=== PATIENT | female | born 1935 | race Two or more races ===

== ENCOUNTER 2017-06-07 12:53 | Emergency (ER) | payer MEDICARE ==
[2017-06-07 12:58] VITALS: TEMP 97.5; BMI 35.2
--- NOTE | 2017-06-07 13:09 | PDOC ---
History of Present Illness - General Stated Complaint: RT ARM/HAND SWELLING Time Seen by Provider: 06/07/17 13:06 History Source: Patient Exam Limitations: No Limitations - History of Present Illness Initial Comments: CHIEF COMPLAINT: 81 y/o afebrile female with PMH breast CA (right mastectomy) c /o atraumatic right hand and wrist pain x 3 days. HISTORY OF PRESENT ILLNESS: The patient states Thursday morning she started having some discomfort in the right fingers and wrist. Yesterday it got much worse and became swollen. She states she can now hardly move her hand and fingers. She denies fever, chills, n/v/d, trauma to affected arm/fingers. She took tylenol for pain only because Motrin upsets her stomach. Vital signs on arrival are notable for BP of 192/88. REVIEW OF SYSTEMS: GENERAL/CONSTITUTIONAL: No fever/chills. No weakness. No weight change. HEAD, EYES, EARS, NOSE AND THROAT: No change in vision. No ear pain or discharge. No sore throat. MUSCULOSKELETAL: +right hand and wrist pain. No neck or back pain. SKIN: No rash or easy bruising. NEUROLOGIC: No headache, vertigo, loss of consciousness, or loss of sensation. PHYSICAL EXAM: GENERAL: The patient is awake, alert, and fully oriented, in no acute distress. HEAD: Normal with no signs of trauma. EXTREMITIES: Moderate edema to distal right forearm at wrist joint that is very TTP. Swelling to MCP joints of right hand that are very TTP. 4th and 5th MCP joints with slight erythema. No streaking. No open wounds. Pt can flex and extend wrist and all fingers. Sensory intact in all fingers. NEUROLOGICAL: Normal speech, normal gait. CN II-XII grossly intact. SKIN: Warm, dry, normal turgor, no rashes or lesions noted. Past History - Past Medical History Allergies/Adverse Reactions: Allergies Allergy/AdvReac Type Severity Reaction Status Date / Time chocolate flavor Allergy Mild Itching Verified 06/07/17 12:59 No Known Drug Allergies Allergy Verified 06/07/17 12:59 Home Medications: Ambulatory Orders Indomethacin 50 mg PO TID #15 capsule 06/07/17 Methylprednisolone [Medrol Dose Nigel] 4 mg PO ASDIR #21 tablet 06/07/17 Anemia: No Asthma: No Cancer: Yes (right breast) Cardiac Disorders: No CVA: No COPD: No CHF: No Dementia: No Diabetes: No GI Disorders: No Disorders: No HTN: No Hypercholesterolemia: No Liver Disease: No Suicide Attempt (Hx): No Seizures: No Thyroid Disease: No - Surgical History Abdominal Surgery: No Appendectomy: Yes Cardiac Surgery: No Cholecystectomy: No Lung Surgery: No Neurologic Surgery: No Orthopedic Surgery: No - Psycho/Social/Smoking Cessation Hx Suicidal Ideation: No Smoking History: Never smoked Have you smoked in the past 12 months: No Hx Alcohol Use: No Drug/Substance Use Hx: No Substance Use Type: None Hx Substance Use Treatment: No *Physical Exam - Vital Signs Last Vital Signs Temp Pulse Resp BP Pulse Ox 97.5 F L 67 20 192/88 98 06/07/17 12:55 06/07/17 12:55 06/07/17 12:55 06/07/17 12:55 06/07/17 12:55 Medical Decision Making - Medical Decision Making A/P: 81 y/o female with atraumatic swelling and pain to right wrist and fingers. Possible gout? Plan is as follows: 1. xray right wrist and fingers Xray right wrist and fingers IMPRESSION: No gross fracture, subluxation or gross bone destruction Gave the patient and her daughter the results. The patient states her pain is much better after Motrin. Will treat for acute gout. Will send rx for medrol dose pack and indomethacin. Instructed the patient to take the medrol dose pack first and take the indomethacin if the steroids don't provide relief within a few days. INstructed her to f/u with her doctor this week and return to the ER with any worsening or concerning symptoms. The patient verbalizes understanding of all instructions, has no further questions and is awaiting discharge. *DC/Admit/Observation/Transfer Diagnosis at time of Disposition: Gout attack Qualifiers: Gout site: wrist Gout etiology: unspecified cause Laterality: right Qualified Code(s): M10.9 - Gout, unspecified - Discharge Dispostion Disposition: HOME Condition at time of disposition: Good - Prescriptions Prescriptions: Indomethacin 50 mg PO TID #15 capsule Methylprednisolone [Medrol Dose Nigel] 4 mg PO ASDIR #21 tablet - Referrals Referrals: Feliciano Jones MD [Primary Care Provider] - Call tomorrow - Patient Instructions Printed Discharge Instructions: DI for Gout Additional Instructions: Discharge Instructions: -2 prescriptions were sent to your pharmacy; start taking the Medrol dose pack tomorrow. If no improvement in 3 days, start taking the Indomethacin. -Call your doctor tomorrow to schedule a follow up appointment for this week -Return to the ER immediately with any worsening or concerning symptoms.
[2017-06-07] MEDS ORDERED: IBUPROFEN 600 MG TABLET (FP) PO ONE (13:30)
[2017-06-07 14:20] VITALS: BP 149/76; PULSE 69
== END 2017-06-07 14:45 | disposition home or self-care (01) ==
LOC: JERFT 12:53
DX: M79.641 Pain in right hand (principal); M10.9 Gout, unspecified; Z85.3 Personal history of malignant neoplasm of breast
CPT/HCPCS: 73110-TC-RT; 73130-TC-RT; 99281-25

== ENCOUNTER 2018-12-01 12:13 | Emergency (ER) | payer MEDICARE, OTHER ==
[2018-12-01 12:23] VITALS: TEMP 98.5; BMI 35.4
[2018-12-01 15:25] LABS: URINE APPEARANCE CLEAR; URINE BILIRUBIN NEGATIVE (<2.0 mg/dL); URINE COLOR LTYELLOW; URINE GLUCOSE (UA) NEGATIVE (NEGATIVE); URINE KETONE NEGATIVE (NEGATIVE); URINE LEUK ESTERASE NEGATIVE (NEGATIVE); URINE NITRITE NEGATIVE (NEGATIVE); URINE PROTEIN NEGATIVE (NEGATIVE); URINE UROBILINOGEN NEGATIVE mg/dL (0.2-1.0)
[2018-12-01 15:52] LABS: BASO % 1.2 % (0-2.0); EOS % 3.3 % (0-4.5); HEMATOCRIT 45.9 % (32.4-45.2); HEMOGLOBIN 14.4 GM/dL (10.7-15.3); LYMPH % 25.7 % (8-40); MCHC 31.4 g/dl (32.0-36.0); MEAN CELL VOLUME 83.1 fl (80-96); MEAN PLT VOLUME 8.9 fl (7.5-11.1); MONO % 7.7 % (3.8-10.2); NEUT % 62.1 % (42.8-82.8); PLATELET COUNT 210 K/MM3 (134-434); RBC 5.53 M/mm3 (3.60-5.2); RDW 14.9 % (11.6-15.6); WHITE BLOOD COUNT 7.5 K/mm3 (4.0-10.0)
[2018-12-01 16:04] LABS: ALBUMIN 3.9 g/dl (3.4-5.0); ALK PHOS 103 U/L (45-117); ANION GAP 6 MMOL/L (8-16); BILIRUBIN,TOTAL 0.6 mg/dL (0.2-1); BLOOD UREA NITROGEN 10 mg/dL (7-18); CALCIUM 9.4 mg/dL (8.5-10.1); CHLORIDE 108 mmol/L (98-107); CO2 27 mmol/L (21-32); CREATININE 0.8 mg/dL (0.55-1.3); GLUCOSE,RANDOM 98 mg/dL (74-106); POTASSIUM 4.6 mmol/L (3.5-5.1); SGOT/AST 32 U/L (15-37); SGPT/ALT 20 U/L (13-61); SODIUM 141 mmol/L (136-145); TOT PROT 7.4 g/dl (6.4-8.2)
--- NOTE | 2018-12-01 16:36 | PDOC ---
History of Present Illness - General Chief Complaint: Pain, Acute Stated Complaint: PAIN, ACUTE, LEFT FLANK TO ABD AREA Time Seen by Provider: 12/01/18 14:40 History Source: Patient Exam Limitations: No Limitations - History of Present Illness Travel History: No Initial Comments: 12/01/18 16:29 82-year-old female presents to ED with complaints of left lower quadrant pain she describes as sharp and intermittent since yesterday. Patient also complaining of mild dysuria without fever and chills. Patient also denies abdominal distention or change in bowels. Patient denies GI disorders, renal colic, or back pain. Timing/Duration: reports: getting worse, intermittent Quality: reports: moderate, cramping, sharpness Abdominal Pain Onset Location: reports: LLQ, flank Pain Radiation: reports: flank Activities at Onset: reports: none Aggravating Factors: improves with: None Alleviating Factors: improves with: None Past History - Travel Traveled outside of the country in the last 30 days: No Close contact w/someone who was outside of country & ill: No - Past Medical History Allergies/Adverse Reactions: Allergies Allergy/AdvReac Type Severity Reaction Status Date / Time No Known Drug Allergies Allergy Verified 12/01/18 12:23 Home Medications: Ambulatory Orders Indomethacin 50 mg PO TID #15 capsule 06/07/17 Methylprednisolone [Medrol Dose Nigel] 4 mg PO ASDIR #21 tablet 06/07/17 Anemia: No Asthma: No Cancer: Yes (right breast) Cardiac Disorders: No CVA: No COPD: No CHF: No Dementia: No Diabetes: No GI Disorders: No Disorders: No HTN: No Hypercholesterolemia: No Liver Disease: No Seizures: No Thyroid Disease: No - Surgical History Abdominal Surgery: No Appendectomy: Yes Cardiac Surgery: No Cholecystectomy: No Lung Surgery: No Neurologic Surgery: No Orthopedic Surgery: No - Suicide/Smoking/Psychosocial Hx Smoking History: Never smoked Have you smoked in the past 12 months: No Information on smoking cessation initiated: No Hx Alcohol Use: No Drug/Substance Use Hx: No Substance Use Type: None Hx Substance Use Treatment: No Patient Lives Alone: No Review of Systems - Review of Systems Able to Perform ROS?: Yes Constitutional: No: Symptoms Reported HEENTM: No: Symptoms Reported Respiratory: No: Symptoms reported Cardiac (ROS): No: Symptoms Reported ABD/GI: Yes: Abdominal cramping : Yes: Frequency, Flank Pain Musculoskeletal: No: Back Pain Integumentary: No: Symptoms Reported Neurological: No: Symptoms reported *Physical Exam - Vital Signs Last Vital Signs Temp Pulse Resp BP Pulse Ox 98.5 F 74 17 156/62 99 12/01/18 12:21 12/01/18 12:21 12/01/18 12:21 12/01/18 12:21 12/01/18 12:21 - Physical Exam General Appearance: Yes: Nourished, Appropriately Dressed. No: Apparent Distress HEENT: positive: EOMI, MADHAVI, TMs Normal, Pharynx Normal. negative: Pale Conjunctivae Neck: positive: Supple Respiratory/Chest: positive: Lungs Clear, Normal Breath Sounds. negative: Respiratory Distress, Accessory Muscle Use Cardiovascular: positive: Regular Rhythm, Regular Rate. negative: Murmur Gastrointestinal/Abdominal: positive: Soft, Tenderness (left flank/ left lower quadrant) Musculoskeletal: negative: CVA Tenderness Integumentary: positive: Normal Color, Warm, Moist Neurologic: positive: Normal Mood/Affect, Motor Strength 5/5 (ambulatory) Moderate Sedation - Procedure Monitoring Vital Signs: Procedure Monitoring Vital Signs Temperature 98.5 F 12/01/18 12:21 Pulse Rate 74 12/01/18 12:21 Respiratory Rate 17 12/01/18 12:21 Blood Pressure 156/62 12/01/18 12:21 O2 Sat by Pulse Oximetry (%) 99 12/01/18 12:21 ED Treatment Course - LABORATORY CBC & Chemistry Diagram: 12/01/18 15:23 12/01/18 15:23 - ADDITIONAL ORDERS Additional order review: Laboratory Results 12/01/18 12/01/18 15:23 15:00 Sodium 141 Potassium 4.6 Chloride 108 H Carbon Dioxide 27 Anion Gap 6 L BUN 10 Creatinine 0.8 Creat Clearance w eGFR > 60 Random Glucose 98 Calcium 9.4 Total Bilirubin 0.6 AST 32 ALT 20 Alkaline Phosphatase 103 Total Protein 7.4 Albumin 3.9 Urine Color Ltyellow Urine Appearance Clear Urine pH 6.0 Ur Specific [place] 1.013 Urine Protein Negative Urine Glucose (UA) Negative Urine Ketones Negative Urine Blood Negative Urine Nitrite Negative Urine Bilirubin Negative Urine Urobilinogen Negative Ur Leukocyte Esterase Negative 12/01/18 15:23 RBC 5.53 H MCV 83.1 MCHC 31.4 L RDW 14.9 MPV 8.9 Neutrophils % 62.1 Lymphocytes % 25.7 D Monocytes % 7.7 Eosinophils % 3.3 Basophils % 1.2 - RADIOLOGY Radiology Studies Ordered: Category Date Time Status ABDOMEN & PELVIS CT W/WO CONTR [CT] Stat CT Scan 12/01/18 15:29 Ordered Medical Decision Making - Medical Decision Making 12/01/18 15:51 Chief complaint: Quadrant left flank pain with dysuria. Patient has no other complaints at this time. Exam: Left lower quadrant left lower flank pain no CVA tenderness. Plan: Urinalysis urine culture CBC, comp and if negative will order a CT with by mouth and IV contrast 12/01/18 16:54 Laboratory Tests 12/01/18 12/01/18 12/01/18 15:00 15:23 15:23 WBC 7.5 RBC 5.53 H Hgb 14.4 Hct 45.9 H MCV 83.1 MCH 26.0 MCHC 31.4 L Sodium 141 Potassium 4.6 Chloride 108 H Carbon Dioxide 27 Anion Gap 6 L BUN 10 Random Glucose 98 Calcium 9.4 AST 32 ALT 20 Alkaline Phosphatase 103 Total Protein 7.4 Albumin 3.9 Urine Ketones Negative Urine Nitrite Negative Ur Leukocyte Esterase Negative *DC/Admit/Observation/Transfer Diagnosis at time of Disposition: Abdominal pain - Discharge Dispostion Disposition: HOME Condition at time of disposition: Stable - Referrals Referrals: Feliciano Jones MD [Primary Care Provider] - 3 days Javid Morgan DO [Staff Physician] - Call tomorrow - Patient Instructions Printed Discharge Instructions: DI for Abdominal Pain-Adult Additional Instructions: Thank you for choosing [facility]. It was a pleasure taking care of you. You were seen here for abdominal pain Your labs were unremarkable. Your CT scan showed no acute pathology, but showed filling defect in mid sigmoid colon You were referred to GI - please call tomorrow for further evaluation Return to the Emergency Department if your symptoms worsen or persist, you have fever, shortness of breath, chest pain, severe abdominal pain, vomiting, black or bloody stools or other concerning symptoms. - Post Discharge Activity
--- NOTE | 2018-12-01 20:00 | PDOC ---
*Physical Exam - Vital Signs Last Vital Signs Temp Pulse Resp BP Pulse Ox 98.5 F 74 17 156/62 99 12/01/18 12:21 12/01/18 12:21 12/01/18 12:21 12/01/18 12:21 12/01/18 12:21 - Physical Exam Comments: 12/01/18 20:00 The patient was examined by [MAIKEL [place]] under my direct supervision. I personally evaluated the patient. I concur with the above findings and the plan of care. ED Treatment Course - LABORATORY CBC & Chemistry Diagram: 12/01/18 15:23 12/01/18 15:23 - ADDITIONAL ORDERS Additional order review: Laboratory Results 12/01/18 12/01/18 15:23 15:00 Sodium 141 Potassium 4.6 Chloride 108 H Carbon Dioxide 27 Anion Gap 6 L BUN 10 Creatinine 0.8 Creat Clearance w eGFR > 60 Random Glucose 98 Calcium 9.4 Total Bilirubin 0.6 AST 32 ALT 20 Alkaline Phosphatase 103 Total Protein 7.4 Albumin 3.9 Urine Color Ltyellow Urine Appearance Clear Urine pH 6.0 Ur Specific [place] 1.013 Urine Protein Negative Urine Glucose (UA) Negative Urine Ketones Negative Urine Blood Negative Urine Nitrite Negative Urine Bilirubin Negative Urine Urobilinogen Negative Ur Leukocyte Esterase Negative 12/01/18 15:23 RBC 5.53 H MCV 83.1 MCHC 31.4 L RDW 14.9 MPV 8.9 Neutrophils % 62.1 Lymphocytes % 25.7 D Monocytes % 7.7 Eosinophils % 3.3 Basophils % 1.2 *DC/Admit/Observation/Transfer - Referrals Referrals: Feliciano Jones MD [Primary Care Provider] - - Patient Instructions - Post Discharge Activity
--- NOTE | 2018-12-01 20:24 | PDOC ---
*Physical Exam - Vital Signs Last Vital Signs Temp Pulse Resp BP Pulse Ox 98.5 F 74 17 156/62 99 12/01/18 12:21 12/01/18 12:21 12/01/18 12:21 12/01/18 12:21 12/01/18 12:21 ED Treatment Course - LABORATORY CBC & Chemistry Diagram: 12/01/18 15:23 12/01/18 15:23 - ADDITIONAL ORDERS Additional order review: Laboratory Results 12/01/18 12/01/18 15:23 15:00 Sodium 141 Potassium 4.6 Chloride 108 H Carbon Dioxide 27 Anion Gap 6 L BUN 10 Creatinine 0.8 Creat Clearance w eGFR > 60 Random Glucose 98 Calcium 9.4 Total Bilirubin 0.6 AST 32 ALT 20 Alkaline Phosphatase 103 Total Protein 7.4 Albumin 3.9 Urine Color Ltyellow Urine Appearance Clear Urine pH 6.0 Ur Specific [place] 1.013 Urine Protein Negative Urine Glucose (UA) Negative Urine Ketones Negative Urine Blood Negative Urine Nitrite Negative Urine Bilirubin Negative Urine Urobilinogen Negative Ur Leukocyte Esterase Negative 12/01/18 15:23 RBC 5.53 H MCV 83.1 MCHC 31.4 L RDW 14.9 MPV 8.9 Neutrophils % 62.1 Lymphocytes % 25.7 D Monocytes % 7.7 Eosinophils % 3.3 Basophils % 1.2 Medical Decision Making - Medical Decision Making Patient signed out to me by MAIKEL [place], pending CT scan Patient currently resting in NAD, denies any pain CT A/P shows diverticulosis, with no evidence of diverticulitis, filling defect in mid sigmoid colon noted Will refer patient to GI for further eval (possible colonoscopy?) Findings d/w Dr. Marybel Grossman for d/c 12/01/18 20:21 *DC/Admit/Observation/Transfer Diagnosis at time of Disposition: Abdominal pain Qualifiers: Abdominal location: left lower quadrant Qualified Code(s): R10.32 - Left lower quadrant pain - Discharge Dispostion Disposition: HOME Condition at time of disposition: Stable Decision to Admit order: No - Referrals Referrals: Feliciano Jones MD [Primary Care Provider] - 3 days Javid Morgan DO [Staff Physician] - Call tomorrow - Patient Instructions Printed Discharge Instructions: DI for Abdominal Pain-Adult Additional Instructions: Thank you for choosing [facility]. It was a pleasure taking care of you. You were seen here for abdominal pain Your labs were unremarkable. Your CT scan showed no acute pathology, but showed filling defect in mid sigmoid colon You were referred to GI - please call tomorrow for further evaluation Return to the Emergency Department if your symptoms worsen or persist, you have fever, shortness of breath, chest pain, severe abdominal pain, vomiting, black or bloody stools or other concerning symptoms. - Post Discharge Activity
[2018-12-01 20:31] VITALS: BP 140/76; PULSE 73
== END 2018-12-01 20:31 | disposition home or self-care (01) ==
LOC: JER 12:13
DX: R10.32 Left lower quadrant pain (principal); Z85.3 Personal history of malignant neoplasm of breast
CPT/HCPCS: 36415; 74177-TC; 80053; 81003; 85025; 87086; 99284-25; Q9967

== ENCOUNTER 2019-04-22 11:21 | Emergency (ER) | payer OTHER | END 2019-04-22 12:04 | disposition home or self-care (01) | LOC: JERFT 11:21 ==

== ENCOUNTER 2019-10-07 15:31 | Emergency (ER) | payer OTHER ==
--- NOTE | 2019-10-07 15:36 | PDOC ---
Rapid Medical Evaluation Chief Complaint: Shortness of Breath Time Seen by Provider: 10/07/19 15:33 Medical Evaluation: Allergies Allergy/AdvReac Type Severity Reaction Status Date / Time No Known Drug Allergies Allergy Verified 04/22/19 11:25 10/07/19 15:34 83 year old female with cough and shortness of breath x 1 week now worsening. reports slight chest pain PMHX: breast CA s/p mastectomy 5 years ago A: cough P: chest xray influenza EKG 10/07/19 15:36 Discharge Disposition - Diagnosis Cough - Referrals - Patient Instructions - Post Discharge Activity
[2019-10-07 15:37] VITALS: TEMP 98.2; BMI 35.4
--- NOTE | 2019-10-07 15:55 | PDOC ---
History of Present Illness - General Chief Complaint: Shortness of Breath Stated Complaint: SOB / COUGH Time Seen by Provider: 10/07/19 15:33 History Source: Patient - History of Present Illness Initial Comments: 10/07/19 16:27 Ms. Maravilla is an 83F with hx breast CA (s/p masectomy 5 years ago), gout, p/w two days of shortness of breath. She reports that her symptoms began two days ago Past History - Past Medical History Allergies/Adverse Reactions: Allergies Allergy/AdvReac Type Severity Reaction Status Date / Time No Known Drug Allergies Allergy Verified 10/07/19 15:35 Home Medications: Ambulatory Orders Cyclobenzaprine HCl [Flexeril 10 mg] 10 mg PO HS PRN #10 tablet 04/22/19 Ibuprofen [Motrin -] 600 mg PO TID #30 tablet 04/22/19 Albuterol Sulfate Inhaler - [Ventolin Hfa Inhaler -] 1 - 2 inh PO PRN #1 inhaler 10/07/19 Azithromycin 250 mg PO DAILY 4 Days #4 tablet 10/07/19 Prednisone [Prednisone 50 MG TABLETS] 50 mg PO DAILY 5 Days #5 tablet 10/07/19 Anemia: No Asthma: No Cancer: Yes (right breast) Cardiac Disorders: No CVA: No COPD: No CHF: No Dementia: No Diabetes: No GI Disorders: No Disorders: No HTN: No Hypercholesterolemia: No Liver Disease: No Seizures: No Thyroid Disease: No - Surgical History Abdominal Surgery: No Appendectomy: Yes Cardiac Surgery: No Cholecystectomy: No Lung Surgery: No Neurologic Surgery: No Orthopedic Surgery: No - Immunization History Immunization Up to Date: Yes - Psycho Social/Smoking Cessation Hx Smoking History: Never smoked Have you smoked in the past 12 months: No Hx Alcohol Use: No Drug/Substance Use Hx: No Substance Use Type: None Hx Substance Use Treatment: No *Physical Exam - Vital Signs Last Vital Signs Temp Pulse Resp BP Pulse Ox 98.2 F 79 17 159/67 98 10/07/19 15:35 10/07/19 15:35 10/07/19 15:35 10/07/19 15:35 10/07/19 15:35 ED Treatment Course - LABORATORY CBC & Chemistry Diagram: 10/07/19 17:00 10/07/19 17:00 Medical Decision Making - Medical Decision Making 10/07/19 16:28 83F with hx breast CA s/p masectomy 5 years ago p/w two days of shortness of breath, dyspnea on exertion, mild chest pain with stable vitals, clear pulmonary exam. Differential includes CAP, ACS, CHF given age, presentation, risk factors. PE also possible given CA history, shortness of breath, dyspnea on exertion, but less likely given normal heart rate, respiratory rate, O2 saturation. Plan: CBC CMP Cardiac profile BNP EKG CXR PT/INR PTT UA Urine culture Defer d-dimer at this time Dispo: Pending labs, imaging 10/07/19 16:34 Discharge - Discharge Information Problems reviewed: Yes Clinical Impression/Diagnosis: Cough Condition: Stable Disposition: HOME - Admission No - Additional Discharge Information Prescriptions: Albuterol Sulfate Inhaler - [Ventolin Hfa Inhaler -] 1 - 2 inh PO PRN #1 inhaler Azithromycin 250 mg PO DAILY 4 Days #4 tablet Prednisone [Prednisone 50 MG TABLETS] 50 mg PO DAILY 5 Days #5 tablet - Follow up/Referral Referrals: Feliciano Jones MD [Primary Care Provider] - - Patient Discharge Instructions Patient Printed Discharge Instructions: DI for Chronic Obstructive Pulmonary Disease Additional Instructions: You were seen in the ER for wheezing and shortness of breath. Your chest x ray was clear. You had wheezing on our physical exam that improved after a nebulizer treatment. We are prescribing you azithromycin, an antibiotic that is often used during COPD exacerbations. Please take one pill daily for the next four days with food. We are also prescribing you a rescue inhaler - please take it as needed for wheezing, twice daily. We are also prescribing you prednisone, a steroid that can help your breathing. Please take it as directed with food. Please return to the ER if you develop high fevers, difficulty breathing, weakness. - Post Discharge Activity
[2019-10-07] MEDS ORDERED: ALBUTEROL SO4 2.5/IPRATROPIUM 0.5 INH SOL 3 ML VIAL.NEB. NEB ONE (16:52)
[2019-10-07] MEDS: ALBUTEROL SO4 2.5/IPRATROPIUM 0.5 INH SOL 3 ML VIAL.NEB. NEB SCH ×4 (16:55→17:30)
--- NOTE | 2019-10-07 16:56 | PDOC ---
Attending Attestation - Resident Resident Name: Jim Lloyd - ED Attending Attestation I have performed the following: I have examined & evaluated the patient, The case was reviewed & discussed with the resident, I agree w/resident's findings & plan, Exceptions are as noted - HPI HPI: 10/07/19 16:54 83 F with h/o breast CA s/p mastectomy, presenting to ED with SOB and cough. Pt states that her symptoms started about 1 week ago with URI like symptoms. She denies any F/C. Endorses dry cough that has progressively worsened. Over the past 2 days pt notes that she has become more SOB. States that she gets winded walking short distances. Denies any orthopnea. Denies leg swelling. Pt endorses intermittent midsternal chest pain. - Physicial Exam PE: 10/07/19 16:55 "GENERAL: Awake, alert, and fully oriented, in no acute distress. HEAD: No signs of trauma EYES: PERRLA, EOMI, sclera anicteric, conjunctiva clear ENT: Auricles normal inspection, hearing grossly normal, nares patent, oropharynx clear without exudates. Moist mucosa NECK: Nontender, no stepoffs, Normal ROM, supple, no lymphadenopathy, JVD, or masses LUNGS: + mild expiratory wheezing, R>L HEART: Regular rate and rhythm, normal S1 and S2, no murmurs, rubs or gallops ABDOMEN: Soft, nontender, normoactive bowel sounds. No guarding, no rebound. No masses EXTREMITIES: Normal range of motion, no edema. No clubbing or cyanosis. No cords, erythema, or tenderness NEUROLOGICAL: Cranial nerves II through XII intact. 5/5 strength and sensation in all extremities, Normal speech, normal gait, normal cerebellar function SKIN: Warm, Dry, normal turgor, no rashes or lesions noted. - Medical Decision Making 10/07/19 16:56 83 F with cough and SOB. Exam notable for mild wheezing. Possible bronchitis vs asthma/COPD. Pt also complaining of midsternal chest pain. Will r/o ACS. - Labs - CXR - Nebs 10/07/19 18:08 Labs wnl Pt reassessed after nebs - states she feels much better. Lung exam now clear Pending CXR 10/07/19 18:46 CXR clear Will DC with albuterol, steroids, and azithro Pt is well appearing, with normal vitals. Clinically stable for DC at this time. I discussed the physical exam findings, ancillary test results and final diagnoses with the patient. I answered all of the patient's questions. The patient was satisfied with the care received and felt comfortable with the discharge plan and treatment plan. The patient agrees to follow up with the primary care physician within 24-72 hours.
[2019-10-07 17:26] LABS: BASO % 0.3 % (0-2.0); EOS % 4.9 % (0-4.5); HEMOGLOBIN 15.1 GM/dL (10.7-15.3); LYMPH % 27.9 % (8-40); MCH 26.5 pg (25.7-33.7); MEAN CELL VOLUME 82.8 fl (80-96); MEAN PLT VOLUME 9.3 fl (7.5-11.1); MONO % 8.3 % (3.8-10.2); NEUT % 58.6 % (42.8-82.8); PLATELET COUNT 242 K/MM3 (134-434); RBC 5.68 M/mm3 (3.60-5.2); RDW 14.6 % (11.6-15.6); WHITE BLOOD COUNT 7.6 K/mm3 (4.0-10.0)
[2019-10-07 17:57] LABS: ALBUMIN 3.8 g/dl (3.4-5.0); BILIRUBIN,TOTAL 0.5 mg/dL (0.2-1); CALCIUM 9.7 mg/dL (8.5-10.1); CREATININE 0.7 mg/dL (0.55-1.3); N-TERMINAL BNP 71.4 pg/ml (5-450); POTASSIUM 4.8 mmol/L (3.5-5.1); TOT PROT 7.5 g/dl (6.4-8.2)
[2019-10-07 18:13] LABS: INR 0.97 (0.83-1.09); PROTHROMBIN TIME (PATIENT) 11.4 SEC (9.7-13.0)
[2019-10-07 18:15] LABS: ACTIVATED PTT 32.7 SECONDS (25.2-36.5)
[2019-10-07 18:27] LABS: URINE APPEARANCE CLEAR; URINE BILIRUBIN NEGATIVE (NEGATIVE); URINE COLOR YELLOW; URINE GLUCOSE (UA) NEGATIVE (NEGATIVE); URINE KETONE NEGATIVE (NEGATIVE); URINE LEUK ESTERASE NEGATIVE (NEGATIVE); URINE NITRITE NEGATIVE (NEGATIVE); URINE PROTEIN NEGATIVE (NEGATIVE); URINE UROBILINOGEN 0.2 mg/dL (0.2-1.0)
[2019-10-07] MEDS ORDERED: AZITHROMYCIN 250 MG TABLET PO ONE (18:57)
[2019-10-07] MEDS ORDERED: AZITHROMYCIN 250 MG TABLET ONE (19:07)
[2019-10-07 19:24] VITALS: BP 154/82; PULSE 97
--- NOTE | 2019-10-09 20:21 | EKG ---
Test Reason : Blood Pressure : / mmHG Vent. Rate : 077 BPM Atrial Rate : 077 BPM P-R Int : 138 ms QRS Dur : 076 ms QT Int : 408 ms P-R-T Axes : 051 -30 051 degrees QTc Int : 461 ms POOR DATA QUALITY, INTERPRETATION MAY BE ADVERSELY AFFECTED SINUS RHYTHM WITH OCCASIONAL PREMATURE VENTRICULAR COMPLEXES AND PREMATURE ATRIAL COMPLEXES LEFT AXIS DEVIATION ABNORMAL ECG WHEN COMPARED WITH ECG OF 10-MAY-2014 09:59, PREMATURE VENTRICULAR COMPLEXES ARE NOW PRESENT PREMATURE ATRIAL COMPLEXES ARE NOW PRESENT Confirmed by RAYMOND GALDAMEZ MD ([id number]) on 10/09/2019 8:20:53 PM Referred By: Confirmed By:RAYMOND GALDAMEZ MD
== END 2019-10-07 19:24 | disposition home or self-care (01) ==
LOC: JER 15:31
PROC: 3E0F7GC Introduction of Other Therapeutic Substance into Respiratory Tract, Via Natural or Artificial Opening (ICD-10-PCS; principal; 2019-10-07)
DX: R05 Cough (principal); Z85.3 Personal history of malignant neoplasm of breast; Z90.11 Acquired absence of right breast and nipple
CPT/HCPCS: 36415; 71046-TC-FY; 80053; 81003; 82550; 83880; 84484; 85025; 85610; 85730; 87086; 87804; 93005; 93010; 94640; 99283-25

== ENCOUNTER 2025-07-17 11:31 | Emergency (ER) | payer OTHER ==
[2025-07-17 11:36] VITALS: BMI 31.8
[2025-07-17] MEDS ORDERED: IBUPROFEN 600 MG TABLET (FP) PO ONE (12:27)
[2025-07-17] MEDS: IBUPROFEN 600 MG TABLET (FP) PO ONE (12:32)
[2025-07-17] MEDS ORDERED: ONDANSETRON 4 MG/2 ML VIAL ONE (13:29)
[2025-07-17] MEDS: SODIUM CHLORIDE 0.9% 500 ML INFUS.BAG IV ONE (13:36)
[2025-07-17] MEDS: ONDANSETRON 4 MG/2 ML VIAL IVPUSH ONE (13:37)
[2025-07-17 13:46] LABS: ABSOLUTE IMMATURE GRANULOCYTES 0.02 x10^3/uL (0.0-0.031); BASOPHILS # 0.10 x10^3/uL (0.01-0.08); EOSINOPHIL % 2.3 % (0.7-5.8); EOSINOPHILS # 0.21 x10^3/uL (0.04-0.36); MCHC 30.9 g/dl (32.2-35.5); MEAN CELL VOLUME 86.2 fl (79.4-94.8); MEAN PLT VOLUME 10.5 fl (9.4-12.3); MONOCYTE # 0.58 x10^3/uL (0.24-0.86); MONOCYTE % 6.4 % (4.7-12.5); RDW 14.5 % (12.5-17.0)
[2025-07-17 13:47] LABS: URINE APPEARANCE CLEAR; URINE BILIRUBIN NEGATIVE (NEGATIVE); URINE COLOR YELLOW; URINE GLUCOSE (UA) NEGATIVE (NEGATIVE); URINE KETONE NEGATIVE (NEGATIVE); URINE LEUK ESTERASE NEGATIVE (NEGATIVE); URINE NITRITE NEGATIVE (NEGATIVE); URINE PROTEIN NEGATIVE (NEGATIVE); URINE UROBILINOGEN 1.0 mg/dL (0.2-1.0)
[2025-07-17 14:34] LABS: HCV DIAGNOSTIC IN-HOUSE W/RFLX NON-REACTIVE (NONREACTIVE)
[2025-07-17 14:54] LABS: HIV INTERPRETATION NEGATIVE (NEGATIVE)
[2025-07-17 15:04] LABS: TOT PROT 7.4 g/dl (6.4-8.2)
[2025-07-17 15:05] LABS: CO2 23.0 mmol/L (21-32)
[2025-07-17 15:06] LABS: ALK PHOS 114.0 U/L (40-150)
[2025-07-17 15:09] LABS: CREATININE 0.73 mg/dL (0.55-1.3); SGOT/AST 24.0 U/L (5-34); SGPT/ALT 8.0 U/L (0-55)
[2025-07-17 15:11] LABS: GLUCOSE,RANDOM 98.0 mg/dL (74-106)
[2025-07-17 18:04] VITALS: BP 156/92; PULSE 79; RESP 18; TEMP 97.3
== END 2025-07-17 19:27 | disposition home or self-care (01) ==
LOC: JERFT 11:31 → JER 11:31
PROC: 3E033GC Introduction of Other Therapeutic Substance into Peripheral Vein, Percutaneous Approach (ICD-10-PCS; principal; 2025-07-17)
DX: M19.032 Primary osteoarthritis, left wrist (principal); R11.2 Nausea with vomiting, unspecified; K57.32 Diverticulitis of large intestine without perforation or abscess without bleeding; R10.31 Right lower quadrant pain; M25.532 Pain in left wrist
CPT/HCPCS: 36415; 73110-TC-LT-FY; 74177-TC; 80053; 81003; 83690; 85025; 86803; 87389; 99285-25; Q9967